=== PATIENT | female | born 1955 | race Caucasian/White ===

== ENCOUNTER → 2019-11-30 | Outpatient (CLI) | payer BC ==
[~2019-11-30] MED LIST: ASA81BEC PO; ASPIRIN325 PO; DIAZEPAM 5 MG5 M1; EFFIENT10 MG PO; FLUOXETINE HCL40 MG PO; LIPITOR 40 MG T40 M1 PO; LOPRESSOR50 MG PO; TOPROL XL25 MG PO; XANAX 0.25 MG0.25 MG PO
== END ==
LOC: SJCVCIMAG 11-22 07:28
PROVIDERS: ATTEND Internal Medicine
DX: I08.8 Other rheumatic multiple valve diseases (principal); Z87.891 Personal history of nicotine dependence

== ENCOUNTER 2019-12-05 06:39 | Observation (INO) | payer BC ==
[~2019-12-05] VITALS: Ht 160 cm; Wt 86.9 kg
[2019-12-05] VITALS (11 sets, daily range): BP systolic 111–129; BP diastolic 44–78
[2019-12-05] MEDS ORDERED: ASA81BEC PO (07:36)
[2019-12-05] MEDS ORDERED: LOPRESSOR50 MG PO (07:37)
[2019-12-05] MEDS ORDERED: LIPITOR 40 MG T40 M1 PO (07:37)
[2019-12-05] MEDS ORDERED: XANAX 0.25 MG0.25 MG PO (07:38)
[2019-12-05] MEDS ORDERED: FLUOXETINE HCL40 MG PO (07:45)
[2019-12-05 07:47] LABS: HEMATOCRIT 37.9 % (37.0-47.0); HEMOGLOBIN 12.9 gm/dL (12.0-15.0); MCH 30.3 pg (26.0-34.0); RBC 4.26 mil/uL (4.20-5.00); RDW 12.8 % (10.5-14.5); WBC 6.3 thou/uL (4.0-11.0)
[2019-12-05] MEDS ORDERED: TOPROL XL25 MG PO (07:48)
[2019-12-05] MEDS ORDERED: DIAZEPAM 5 MG5 M1 (07:49)
[2019-12-05 07:57] LABS: CALCIUM 8.7 mg/dL (8.5-10.1); CREATININE 0.8 mg/dL (0.6-1.0); POTASSIUM 4.3 mmol/L (3.5-5.1)
--- NOTE | 2019-12-05 08:54 | EKG ---
[facility] [place] [address] ELECTROCARDIOGRAM REPORT Name: DON SUTHERLAND Room #: REG [facility]#: [id number] Admission: 12/05/19 Attend Phys: Andre Reyes MD, Discharge: Date of : 57 Report #: [id number] THIS REPORT FOR: cc: Perla Thomas Christine L. DO Lundgren, Craig H. MD [facility] THIS REPORT FOR: //name// [facility] Test Date: 2019-12-05 Test Time: 07:28:07 Pat Name: DON SUTHERLAND Department: Room: Gender: Larriman: GERARD : 1955 Requested By: Andre Reyes Order Number: [id number] MD: Talha Felix Measurements Intervals [place] Rate: 67 P: 68 MA: 143 QRS: 14 QRSD: 89 T: 31 QT: 419 QTc: 443 Interpretive Statements Sinus rhythm Normal tracing No previous ECG available for comparison Electronically Signed On 12-05-2019 8:54:42 CDT by Talha Felix [email or web address] <ELECTRONICALLY SIGNED> By: Talha Felix MD, [facility] 12/05/19 0854 7 7 Talha Felix MD, [facility] /EPI
--- NOTE | 2019-12-05 17:48 | NUR ---
PATIENT ARRIVED FROM CATHLAB VIA BED, ALERT AND ORIENTED X4. ASSESSMENT CHARTED, VSS, RT GRION SITE INTACT, PLS SEE POST CARDIAC ASSESSMENT, AND WILL CONTINUE POC.
--- NOTE | 2019-12-06 02:48 | NUR ---
PT IS ALERT AND ORINETED X4 . LUNGS ARE CLEAR ON ROOM AIR. RIGHT GROIN SITE IS CLEAN AND DRY NO HEMATOMA NOTED. SLIGHT DISCOMFORT PT REPORTS BUT NOT PAIN SHE REPORTS. ABDOMEN IS SOFT BOWEL SOUNDS ACTIVE X4. TOLERATING FLUIDS. WILL CONTINUE TO ASSESS AND MONITOR PER NURSING. AMBULATES TO BATHROOM AND REPOSITIONS HERSELF IN BED FOR COMFORT TO SLEEP
[2019-12-06 04:30] VITALS: BP 126/67
[2019-12-06 05:59] LABS: HEMOGLOBIN 12.1 gm/dL (12.0-15.0); MCH 30.8 pg (26.0-34.0); MCHC 34.5 g/dL (28.0-37.0); MCV 89.3 fL (80.0-100.0); RBC 3.91 mil/uL (4.20-5.00); WBC 7.1 thou/uL (4.0-11.0)
[2019-12-06 06:57] LABS: ALBUMIN 3.1 g/dL (3.4-5.0); CALCIUM 8.4 mg/dL (8.5-10.1); POTASSIUM 3.6 mmol/L (3.5-5.1); TOTAL BILIRUBIN 0.4 mg/dL (0.2-1.0); TOTAL PROTEIN 6.6 g/dL (6.4-8.2)
[2019-12-06 07:00] LABS: TROPONIN-I 0.98 ng/mL (<0.06)
--- NOTE | 2019-12-06 07:12 | EKG ---
[facility] [place] [address] ELECTROCARDIOGRAM REPORT Name: DON SUTHERLAND Room #: 207-[facility] M.R.#: [id number] Admission: 12/05/19 Attend Phys: Andre Reyes MD, Discharge: Date of : 57 Report #: [id number] THIS REPORT FOR: cc: Perla Thomas Christine L. DO Santiago, Patrick MD [facility] ~ THIS REPORT FOR: //name// [facility] Test Date: 2019-12-06 Test Time: 07:01:28 Pat Name: DON SUTHERLAND Department: Room: 207 Gender: F Bunch Breaker: GERARD : 1955 Requested By: Patricia Milian Order Number: [id number] MD: Michoacano Cantrell Measurements Intervals Ralph Rate: 69 P: 24 VT: 154 QRS: 11 QRSD: 88 T: 17 QT: 413 QTc: 443 Interpretive Statements Sinus rhythm Compared to ECG 12/05/2019 07:28:07 No significant changes Electronically Signed On 12-06-2019 7:12:27 CDT by Michoacano Cantrell [email or web address] <ELECTRONICALLY SIGNED> By: Michoacano Cantrell MD, FACC 12/06/19711 0 0 Michoacano Cantrell MD, [facility] /EPI
[2019-12-06] MEDS ORDERED: EFFIENT10 MG PO (07:37)
[2019-12-06] MEDS ORDERED: ASPIRIN325 PO (07:46)
[2019-12-06 08:05] VITALS: BP 111/61
[2019-12-06 09:04] VITALS: BP 111/61
--- NOTE | 2019-12-06 10:17 | NUR ---
ASSUMED CARE PT SHIFT CHANGE. ASSESSMENT CHARTED.MEDS GIVEN PER MAY.PT ALERT AND ORIENTED.VSS. R GROIN SITE CDI NO HEMATOMA. DC ORDERS ACKNOWLEDGED AND IMPLEMENTED. REVIEWED DC PAPERWORK WITH PT COMMUNICATES UNDERSTANDING. IV REMOVED. TELE REMOVED. PT LEFT WITH ALL BELONGINGS ACCOMPANIED BY SPOUSE.
--- NOTE | 2019-12-10 17:42 | CATHLAB ---
[facility] [place] [address] INVASIVE PROCEDURE REPORT Name: DON SUTHERLAND Room #: 207-P [facility] Lynette Diop#: [id number] Admission: 12/05/19 Attend Phys: Andre Reyes MD, Discharge: 12/06/19 Date of : 57 Report #: [id number] THIS REPORT FOR: cc: Perla Thomas Christine L. DO Mancuso, Gerald M. MD [facility] ~ APPROVED REPORT Study performed: 12/05/2019 07:58:21 Patient Details Patient Status: Out-Patient Room #: The patient is a 64 year-old female Event Personnel Andre Reyes Enrollment Services Dean, Neo Lund RN RN, Sima Lucio Monitor, Abigail Bethea RTR, ALICIA Scrub, Fran Vides RTR Scrub Procedures Performed Art Access - R femoral artery* Left Heart Cath w/or w/o Coronaries [id number] [facility] Aortogram Abdominal Peripheral Angio 046152 [address]IN[address] Place w/wo Plasty Single LAD 345615 52630 Initial Mod Sed Same Phys/QHP Gr5y 258311 00660 Mod Sed Same Phys/QHP Ea 114306 Indication Chest pain Procedure Narrative The Right Groin^ was infiltrated with 1% Lidocaine subcutaneous anesthesia. A PINNACLE 6FR Sheath #[id number] sheath was inserted into the RFA 6F^. Coronary angiography was performed using coronary diagnostic catheters. The right coronary system was accessed and visualized with a JR4 catheter. The left coronary system was accessed and visualized with a JL4 catheter. The left ventricle was accessed and visualized with a STR PIG catheter. Left ventriculogram was performed in 30 degree projection. Intraoperative Conscious Sedation Sedation start time: 835 Case end Time: 946 Fentanyl 50 mcg Versed 2 mg Fluoro Time: 6.80 minutes [facility] [place] [address] INVASIVE PROCEDURE REPORT Name: DON SUTHERLAND Room #: 207-P [facility] IN M.R.#: [id number] Admission: 12/05/19 Attend Phys: Andre Reyes, Discharge: 12/06/19 Date of : 57 Report #: [id number] Dose: DAP 55623.40 cGycm2 1837 mGy Contrast Type and Amount: Omnipaque 200 ml Hemodynamics The aortic pressure is 108/57 mmHg with a mean of 80 mmHg. The left ventricular pressure is 123/9 mmHg with a mean of mmHg. The left ventricular end diastolic pressure is 27 mmHg. PCI Technique Lesion Percutaneous coronary intervention was performed on the proximal left anterior descending artery segment. A LAUNCHER 6FR EBU 3.5 #[id number] Guide Catheter was used to engage the LAD ostium. A Luge Wire .014 x 182CM #[id number] Interventional Guidewire was used to cross the lesion. BALLOON DILATION A Balloon catheter Sprinter OTW 2.5 x 12 #[id number] was inserted and inflated up to 6.00atm for 23seconds. Additional Inflation: 4.00atm for 14seconds. STENT DEPLOYMENT A stent RESOLUTE PIETER OTW 2.75 X 12 #[id number] was inserted and inflated up to 12.00atm for 33seconds. Additional Inflation: 14.00atm for 29seconds. Conclusion #1. Successful PTCA stent of proximal LAD 80% stenosis to 0% with a 2.5 x 12 resolute pieter SERGEY grade III flow the diagonal branch is jailed but no encroachment and flow. #2 left main free of disease giving rise to LAD and circumflex #3 circumflex OM nondominant with minimal irregularity #4 small nondominant right no occlusive disease #5 normal left jugular size and systolic function EF 60% Conditions and plan: Continue aggressive risk factor modification. Dual antiplatelet therapy has been initiated. Patient is hemodynamically stable and pain-free upon transfer to CCU to follow post coronary stent protocol. <ELECTRONICALLY SIGNED> By: Andre Reyes MD, [facility] 12/10/191741 41 41 Andre Reyes MD, FACC /INF
== END 2019-12-06 10:13 | disposition home or self-care (01) ==
LOC: CATH 06:39 → 2N 10:13 → CATH 10:48 → 2N 12-06 10:13
PROVIDERS: Nurse Practitioner Adult Health; ADMIT Internal Medicine Cardiovascular Disease; ATTEND Internal Medicine Cardiovascular Disease
DX: I25.10 Atherosclerotic heart disease of native coronary artery without angina pectoris (principal); I10 Essential (primary) hypertension; E78.5 Hyperlipidemia, unspecified; Z87.891 Personal history of nicotine dependence; Z79.82 Long term (current) use of aspirin; Z79.899 Other long term (current) drug therapy

== ENCOUNTER → 2020-08-04 | Outpatient (CLI) | payer BC | LOC: SJCVCIMAG 09:51 | PROVIDERS: ATTEND Internal Medicine | DX: I65.23 Occlusion and stenosis of bilateral carotid arteries (principal); E78.00 Pure hypercholesterolemia, unspecified; Z87.891 Personal history of nicotine dependence ==

== ENCOUNTER → 2020-08-13 | Outpatient (CLI) | payer BC ==
[~2020-08-13] VITALS: Ht 160 cm; Wt 85.3 kg
[~2020-08-13] MED LIST changes: +B COMPLEX1 EACH PO; +BERBERINE PO; +CHARCOAL200 MG PO; +CHROMIUM400 MCG PO; +CREON DR 12,001 EACH PO; +LIPITOR 20 MG T20 M1 PO; -LIPITOR 40 MG T40 M1 PO; +N-ACETYL-L-CYS600 MG PO; +NITROSTAT0.4 M1 SUBLING; +OMEGA-3 FISH1200 MG PO; +PROBIOTIC1 EAC7 PO; +VITAMIN C500 M2 PO; +VITAMIN D21250 MC1 PO; +VITAMIN D310 MCG/11 PO; -XANAX 0.25 MG0.25 MG PO; +XANAX1 MG PO
[2020-08-13 07:17] VITALS: BP 118/52
[2020-08-13 07:42] LABS: HEMATOCRIT 37.6 % (37.0-47.0); HEMOGLOBIN 12.7 gm/dL (12.0-15.0); MCH 30.4 pg (26.0-34.0); MCHC 33.7 g/dL (28.0-37.0); MCV 90.1 fL (80.0-100.0); RBC 4.17 mil/uL (4.20-5.00); RDW 12.9 % (10.5-14.5); WBC 5.3 thou/uL (4.0-11.0)
[2020-08-13 07:54] LABS: CREATININE 0.9 mg/dL (0.6-1.0); POTASSIUM 4.3 mmol/L (3.5-5.1)
[2020-08-13 11:43] LABS: APTT 24.3 Seconds (24.5-32.8); PROTIME 10.9 Seconds (10.5-12.1)
[2020-08-13 11:44] LABS: ALBUMIN 3.2 g/dL (3.4-5.0); CALCIUM 8.6 mg/dL (8.5-10.1); CREATININE 0.9 mg/dL (0.6-1.0); POTASSIUM 4.2 mmol/L (3.5-5.1); TOTAL BILIRUBIN 0.7 mg/dL (0.2-1.0); TOTAL PROTEIN 6.8 g/dL (6.4-8.2)
[2020-08-13 13:04] LABS: URINE BILIRUBIN NEGATIVE (Negative); URINE BLOOD 2+ (Negative); URINE CLARITY CLEAR; URINE COLOR YELLOW; URINE GLUCOSE-RANDOM* NEGATIVE (Negative); URINE KETONES NEGATIVE (Negative); URINE LEUKOCYTES-REFLEX NEGATIVE (Negative); URINE NITRITE-REFLEX NEGATIVE (Negative); URINE PROTEIN (DIPSTICK) NEGATIVE (Negative); URINE SPECIFIC GRAVITY <= 1.005 (1.005-1.035); URINE UROBILINOGEN 0.2 E.U./dl (0.2-1.0)
[2020-08-13 13:24] LABS: CASTS None Seen /LPF (None Seen); CRYSTALS None Seen /LPF (None Seen); SQUAMOUS 0-3 Few /LPF (0-3)
[2020-08-13 13:26] LABS: URINE RBC 1-2 Rare /HPF (NONE SEEN)
[2020-08-13 13:27] LABS: BACTERIA-REFLEX None Seen /HPF (None Seen); URINE WBC-REFLEX 0-5 Rare /HPF (0-5)
--- NOTE | 2020-08-16 11:36 | HC ---
[facility] [place] [place] [address] CONSULTATION Name: DON SUTHERLAND Room #: REG [facility].#: [id number] Admission: 08/13/20 Attend Phys: José Hernandez MD Discharge: Date of : 57 Report #: [id number] THIS REPORT FOR: cc: Perla Thomas Christine L. DO Forman, John M. MD ~ DOC #: [id number] Troy Anderson MD DATE OF SERVICE: 08/13/2020 We were asked to see the patient by Dr. Hernandez. HISTORY OF PRESENT ILLNESS: The patient is a 65-year-old with 80% right carotid stenosis. The patient came to medical attention after she had a fall. This was in the context of working on overhead light fixture. The patient had an x-ray that showed cervical artery plaque. Follow up noninvasive studies suggested that this was a high-grade lesion and arteriography today shows an 80% carotid artery stenosis on the right, left side has trivial disease. The patient has a history of coronary artery disease and had a drug-eluting stent placed in 11/2019. Other history includes hyperlipidemia. The patient denies hypertension or diabetes mellitus. FAMILY HISTORY: Strongly positive for stroke according to the patient. SOCIAL HISTORY: The patient is a former smoker. 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 They moved to the [place] to be closer to grandchildren. ALLERGIES: THE PATIENT CLAIMS TO BE ALLERGIC TO PENICILLIN, WHICH CAUSES TONGUE SWELLING. THE PATIENT IS ALSO ALLERGIC TO SALICYLIC ACID-SULFUR. THE PATIENT DOES SAY THAT SHE HAS BEEN ABLE TO TAKE KEFLEX WITHOUT DIFFICULTY, HOWEVER. REVIEW OF SYSTEMS: GENERAL: Denies change in weight, fever. EYES: Denies vision change. ENT: Denies headache, hearing loss, sinus problems. RESPIRATORY: Denies shortness of breath, cough or sputum. CARDIAC: Denies palpitations or angina. GASTROINTESTINAL: Denies nausea, vomiting, blood in stool. GENITOURINARY: Denies urgency, frequency, blood in urine, MUSCULOSKELETAL: Has a soft tissue discomfort following the fall, but no bone or joint problems per se. SKIN: No rash or infection. [facility] [address] [place] [address] CONSULTATION Name: DON SUTHERLAND Room #: REG [facility]#: [id number] Admission: 08/13/20 Attend Phys: José Hernandez MD Discharge: Date of : 57 Report #: [id number] NEUROLOGIC: No motor or sensory dysfunction other than the recent fall. HEMATOLOGIC: No rash or bleeding. ENDOCRINE: No goiter, no tremor. PHYSICAL EXAMINATION: GENERAL: The patient is lying in bed, status post cardiac cath. VITAL SIGNS: Heart rate 68, blood pressure 140/70. HEENT: No scleral icterus. No arcus. NECK: No mass, no bruit. CHEST: Clear to auscultation. HEART: Rhythm regular, no murmur. ABDOMEN: Soft. EXTREMITIES: No clubbing, cyanosis or edema. SKIN: No rash or infection. NEUROLOGIC: No motor or sensory dysfunction. MUSCULOSKELETAL: No bone or joint asymmetry or deformity. PSYCHIATRIC: The patient has mild anxiety, but is oriented and appropriate overall. ASSESSMENT: The patient has a high-grade right carotid artery lesion arguably symptomatic. No obvious vertebrobasilar insufficiency; however. Risks and details of carotid surgery were discussed. These include but are not limited to bleeding, infection, anesthesia risks, heart and lung problems, stroke and . Options and alternatives were reviewed. The patient understands all of this and wishes to proceed. Troy Anderson MD JF/ALL <ELECTRONICALLY SIGNED> By: Troy Anderson MD 08/16/20 1136 1158 58 Troy Anderson MD /nt
== END | disposition home or self-care (01) ==
LOC: CATH 06:33
PROVIDERS: Surgery Vascular Surgery; ATTEND Nuclear Medicine Nuclear Cardiology
DX: I65.21 Occlusion and stenosis of right carotid artery (principal); I70.1 Atherosclerosis of renal artery; I73.9 Peripheral vascular disease, unspecified; I10 Essential (primary) hypertension; I25.10 Atherosclerotic heart disease of native coronary artery without angina pectoris; E78.5 Hyperlipidemia, unspecified; F32.9 Major depressive disorder, single episode, unspecified; E66.9 Obesity, unspecified; Z98.890 Other specified postprocedural states; Z79.899 Other long term (current) drug therapy; Z87.891 Personal history of nicotine dependence; Z88.0 Allergy status to penicillin; Z88.8 Allergy status to other drugs, medicaments and biological substances

== ENCOUNTER → 2020-08-15 | Outpatient (CLI) | payer BC | LOC: LAB 05:47 | PROVIDERS: ATTEND Student in an Organized Health Care Education/Training Program | DX: Z01.812 Encounter for preprocedural laboratory examination (principal); Z20.822 Contact with and (suspected) exposure to COVID-19 ==

== ENCOUNTER 2020-08-19 06:12 | Inpatient (IN) | payer BC ==
[2020-08-19] VITALS (22 sets, daily range): BP systolic 80–125; BP diastolic 24–64
[~2020-08-19] VITALS: Ht 160 cm; Wt 86.2 kg
--- NOTE | 2020-08-19 07:23 | EKG ---
[place] [address] [address] [facility] [place] [address] ELECTROCARDIOGRAM REPORT Name: DON SUTHERLAND Room #: 150-1 ADM IN M.R.#: [id number] Admission: 08/19/20 Attend Phys: Troy Anderson MD Discharge: Date of : 57 Report #: [id number] [facility] Test Date: 2020-08-19 Test Time: 06:39:58 Pat Name: DON SUTHERLAND Department: Room: 150 1 Gender: F Utility Aide: SHARRI : 1955 Requested By: Troy Anderson Order Number: [id number] : Michoacano Cantrell Measurements Intervals [place] Rate: 65 P: 60 NC: 147 QRS: 1 QRSD: 89 T: 13 QT: 433 QTc: 451 Interpretive Statements Sinus rhythm Borderline T wave abnormalities Compared to ECG 12/06/2019 07:01:28 T-wave abnormality now present Electronically Signed On 08-19-2020 7:23:10 CDT by Michoacano Cantrell [email or web address] <ELECTRONICALLY SIGNED> By: Michoacano Cantrell MD, [facility] 08/19/20 0723 0639 8 Michoacano Cantrell MD, FACC /EPI
--- NOTE | 2020-08-19 15:02 | O ---
[facility] [place] [address] OPERATIVE REPORT Name: DON SUTHERLAND Room #: 150-1 ADM IN M.R.#: [id number] Admission: 08/19/20 Attend Phys: Troy Anderson MD Discharge: Date of : 57 Report #: [id number] THIS REPORT FOR: cc: Perla Thomas,Perla Hudson,Troy Baptiste MD ~ DOC #: [id number] Troy Anderson MD DATE OF SERVICE: 08/19/2020 PREOPERATIVE DIAGNOSIS: Right carotid artery stenosis. POSTOPERATIVE DIAGNOSIS: Right carotid artery stenosis. PROCEDURE: Right carotid endarterectomy with patch closure. SURGEON: Troy Anderson MD. COMPLIANCE MANAGER: SULY Shelley (Jeremy). ANESTHESIA: General. INDICATIONS: The patient is a 65-year-old who had a fall recently. In the course of the evaluation, the patient was found to have an 80% right carotid stenosis at the bifurcation, left carotid trivial disease. No clear evidence of a posterior circulation problems. FINDINGS AND TECHNIQUE: After general anesthesia was established, an oblique right neck incision was made. Common facial vein was divided. Common internal and external carotid arteries and the superior thyroid artery were identified and controlled. 10,000 units of heparin were given. Continuous electroencephalographic monitoring was performed during the operation. When the carotid vessels were occluded, no EEG changes were noted. Carotid arteriotomy was made. The endarterectomy was performed without creating a distal flap. Neointima was inspected and all loose debris was removed. Tacking sutures were placed at the transition zone. When the endarterectomy was deemed to be satisfactory, the arteriotomy was closed with a thin-walled pericardial patch and running Prolene. Prior to finishing the closure, the carotid vessels were backbled and the artery was flushed with heparinized saline. Flow was established first through the external, then the internal carotid artery. Protamine was given to reverse the heparin. Hemostasis was ascertained. [facility] [address] [place] [address] OPERATIVE REPORT Name: DON SUTHERLAND Room #: 150-1 ADM IN M.R.#: [id number] Admission: 08/19/20 Attend Phys: Troy Anderson MD Discharge: Date of : 57 Report #: [id number] When hemostasis was satisfactory, the wound was irrigated with antibiotic solution. The Erica drain was brought out through the bottom pole of the incision. The wound was closed in layers. The patient was taken to the recovery area where her neurologic progress was monitored. All counts were reported as correct. Troy Anderson MD JF/PUN <ELECTRONICALLY SIGNED> By: Troy Anderson MD 08/19/20 1502 0948 1042 Troy Anderson MD /nt
--- NOTE | 2020-08-19 16:52 | NUR ---
PT RESTING COMFORTABLY. ADMIT TO ICU S/P RIGHT ENDARECTOMY. NECK SITE HAS VANGIE DRESSING, WITH PIN-MONI DRAIN, MINIMAL BLEEDING INTO DRESSING, ABEL TUBBS IS AWARE. RIGHT RADIAL ART LINE IN PLACE, FUNCTIONING WELL, NO S/S OF BLEEDING. PT AFEBRILE, ADEQUATE UOP, NO BM, APPROPRIATE APPETITE. PT HAS BEEN THOUROUGHLY UPDATED AND EDUCATED ON CONDITION AND POC. PT PROGRESSING TOWARDS POC.
[2020-08-20] VITALS (8 sets, daily range): BP systolic 106–112; BP diastolic 49–82
[2020-08-20 04:25] LABS: HEMATOCRIT 31.8 % (37.0-47.0); HEMOGLOBIN 10.9 gm/dL (12.0-15.0); MCH 31.4 pg (26.0-34.0); MCHC 34.4 g/dL (28.0-37.0); MCV 91.3 fL (80.0-100.0); RBC 3.49 mil/uL (4.20-5.00); WBC 8.7 thou/uL (4.0-11.0)
[2020-08-20 05:12] LABS: CALCIUM 7.8 mg/dL (8.5-10.1); CREATININE 0.9 mg/dL (0.6-1.0)
--- NOTE | 2020-08-20 06:20 | NUR ---
PT WAS ABLE TO SLEEP MOST OF THE NIGHT WITH MINIMAL C/O PAIN MANAGED BY PRN PAIN MEDICATION, REFER TO EMAR. PT A&OX4, ON ROOM AIR. PER DR. JUDSON ALSTON TO DC MOJICA AND ART LINE IF EVERYTHING OVERNIGHT WENT ACCORDINGLY. AT 0550 HEMOSTATSIS WAS OPTAINED ON RIGHT RADIAL EDWAR. PT ORAL INTAKE OVERNIGHT WAS ADEQUATE. MOJICA CATH PULLED AT 0545 WITH NO ISSUES. PT UP TO CHAIR AND PAIN MANAGEABLE.
--- NOTE | 2020-08-20 13:15 | NUR ---
ASSUME CARE OF PT AT 0900. PT ALERT AND ORIENTED. 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 PT ABLE TO VOID THIS AM WITHOUT DIFFICULTIES. PERIPHERAL IV SITES DISCONTINUED BY THIS RN. DISCHARGE INSTRUCTIONS GIVEN BY THIS RN ALL PT QUESTIONS ANSWERED. PT DISCHARGED FROM ICU AT 1240 ACCOMPANIED BY NURSING STAFF.
--- NOTE | 2020-08-25 19:06 | PATH ---
[facility] [address] [place] [address] PATHOLOGY RPT PROCEDURE Name: DON MALDONADO Room #: 248-P DIS IN M.R.#: [id number] Admission: 08/19/20 Date of : 57 Discharge: 08/20/20 Report #: [id number] Path Case #: [id number] [facility] Accession Number: [id number] . 01 Material submitted: . carotid body - RIGHT CAROTID PLAQUE. Modifiers: right . 01 Clinical history: . OR/DISORDER OF ARTERIES CAROTID ENDARTERECTOMY (+++) RIGHT CAROTID STENOSIS 80% . 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 (IUV:pit; 08/25/2020) QTP 08/25/2020 1417 Local . 02 Electronically signed: . Shaila Mckeon MD, Pathologist NPI- [id number] . 01 Gross description: . Received in formalin labeled "Don Maldonado, right carotid plaque" is a tubular portion of veliz-white rubbery tissue measuring 1.8 cm in length and 1.1 cm in diameter. The specimen is sectioned to reveal a partially calcified cut surface. Possible stenosis of 30% is identified. The specimen is submitted entirely in cassette A1 following decalcification. ([facility]; 08/23/2020) [facility] 08/23/2020 1517 Local . 02 Pathologist provided ICD-10: I77.1 . 02 CPT . 398399, 516643 Specimen Comment: A courtesy copy of this report has been sent to [phone], [phone] Specimen Comment: 2034 Specimen Comment: Report sent to / DR TINEO Performed at: [address] [id number] MD Mukesh Bah MD Phone: [phone] Performed at: [address] [place] [address] PATHOLOGY RPT PROCEDURE Name: DON MALDONADO Room #: 248-P DIS IN M.R.#: [id number] Admission: 08/19/20 Date of : 57 Discharge: 08/20/20 Report #: [id number] Path Case #: [id number] [address] [place], [place] [id number] MD Shaila Mckeon MD Phone: [phone]
== END 2020-08-20 12:40 | disposition home or self-care (01) | DRG 39 ==
LOC: TBA 06:12 → ICU 10:08 → PRE 14:02 → ICU 15:38
PROVIDERS: Physician Assistant; ADMIT Surgery Vascular Surgery; ATTEND Surgery Vascular Surgery
PROC: 03UK07Z Supplement Right Internal Carotid Artery with Autologous Tissue Substitute, Open Approach (ICD-10-PCS; principal; 2020-08-19)
PROC: 03CK0ZZ Extirpation of Matter from Right Internal Carotid Artery, Open Approach (ICD-10-PCS; principal; 2020-08-19)
DX: I65.21 Occlusion and stenosis of right carotid artery (principal)
CPT/HCPCS: 10078; 47375; 50010; 50101; 50386; 50403; 50455; 51301; 52287; 54118; 56524; 56526; 56528; 56531; 56534; 57254; 58731; 62110; 62900; 65020; 65130; 70005

== ENCOUNTER → 2020-10-22 | Outpatient (CLI) | payer BC | LOC: SJCVCIMAG 09-24 14:52 | PROVIDERS: ATTEND Nuclear Medicine Nuclear Cardiology | DX: I65.22 Occlusion and stenosis of left carotid artery (principal); E78.00 Pure hypercholesterolemia, unspecified; Z98.890 Other specified postprocedural states; Z79.82 Long term (current) use of aspirin; Z79.899 Other long term (current) drug therapy; Z87.891 Personal history of nicotine dependence ==

== ENCOUNTER → 2020-12-15 | Outpatient (CLI) | payer BC | LOC: SJCVCIMAG 07:28 | PROVIDERS: ATTEND Internal Medicine | DX: I08.1 Rheumatic disorders of both mitral and tricuspid valves (principal); I25.10 Atherosclerotic heart disease of native coronary artery without angina pectoris; E78.5 Hyperlipidemia, unspecified; F32.9 Major depressive disorder, single episode, unspecified; Z88.2 Allergy status to sulfonamides; Z88.0 Allergy status to penicillin; Z88.8 Allergy status to other drugs, medicaments and biological substances; Z79.82 Long term (current) use of aspirin; Z79.899 Other long term (current) drug therapy; Z95.818 Presence of other cardiac implants and grafts; Z95.5 Presence of coronary angioplasty implant and graft ==